=== PATIENT | female | born 1935 | race African-American/Black ===

== ENCOUNTER → 2018-12-23 | Day surgery (SDC) | payer MEDICARE, BC ==
[~2018-12-23] MED LIST: ASPI81TA50 PO; ATEN25TA PO; IV RINGERS,LACTATED 1000ML 1,000 ML IV ONE; LIDOCAINE 2% PF 5 ML VIAL. ONE; LOSA1TAB22 PO; PROPOFOL 40 ML IV ONE; TRIA1TAB5 PO
[2018-12-23 09:55] VITALS: BP 133/60
--- NOTE | 2018-12-24 14:06 | PATHOLOGY ---
[facility] Accession Number: [id number] . 01 Material submitted: . PART A: small bowel - SMALL BOWEL BIOPSY PART B: stomach - GASTRIC ANTRUM BIOPSY PART C: esophagus - DISTAL ESOPHAGUS BIOPSY. Modifiers: distal . 01 Clinical history: . Abdominal pain . 02 Diagnosis: A. Small bowel biopsies: - Focal mild nonspecific duodenitis. . B. Gastric biopsy, antrum: - Chronic gastritis, mild. . C. Esophageal biopsies, distal esophagus: - Segments of hyperplastic squamous esophageal mucosa and esophagogastric mucosa showing chronic inflammation, consistent with reflux esophagitis. (JPM:darren 12/24/2018) S/12/24/2018 . 02 Comment: Sections of the small bowel biopsy reveal segments of duodenal and small intestine mucosa showing congestion and a focal modest increase of chronic inflammatory cells with a few admixed neutrophils. Where best oriented, the mucosa villi show no sprue-like changes. . Sections of the gastric antral biopsy show congestion and mild chronic inflammation with a few admixed eosinophils. A properly controlled immunoperoxidase stain for Helicobacter is negative for Helicobacter organisms. . Sections of the distal esophageal biopsy reveal segments of tangentially oriented, hyperplastic squamous esophageal mucosa and esophagogastric mucosa showing mild to focal moderate chronic inflammation. The findings are consistent with reflux esophagitis. There is no evidence of Armstrong's change, dysplasia, or malignancy. (JPM:darren; 12/24/2018) . Special stain performed: Immunoperoxidase stain for Helicobacter on B1. . 02 Electronically signed: . Farooq Rajan MD, Pathologist NPI- [id number] . 01 Gross description: . A. Received in formalin labeled "[place], small bowel biopsy," are 4 segments of [place] soft tissue measuring 1.5 x 0.9 x 0.3 cm in aggregate dimensions and ranging from 0.3 to 0.5 cm in maximum dimension. The specimen is submitted entirely in cassette A1. . B. Received in formalin labeled "[place], gastric antrum," is a single segment of [place] soft tissue measuring 0.4 cm in maximum dimension. The specimen is entirely submitted in cassette B1. . C. Received in formalin labeled "[place], distal esophagus," are 4 segments of [place] soft tissue measuring 1.0 x 0.8 x 0.2 cm in aggregate dimensions and ranging from 0.3 to 0.5 cm in maximum dimension. The specimen is submitted entirely in cassette C1. (TSD; 12/23/2018) TOB/TOB . 02 Pathologist provided ICD-10: K29.80, K29.50, K21.0 . 02 CPT . 599577, 869444, [id number], [id number] Specimen Comment: A courtesy copy of this report has been sent to Specimen Comment: [phone], . Specimen Comment: Report sent to / DR MCCARTNEY Performed at: 01 [facility] [address], [place] [id number] MD Petros Ramírez MD Phone: [phone] Performed at: 02 [facility] [address] [place] [id number] MD Farooq Rajan MD Phone: [phone]
== END ==
LOC: SURG 08:28
PROVIDERS: ATTEND Internal Medicine Gastroenterology
DX: K29.50 Unspecified chronic gastritis without bleeding (principal); K29.80 Duodenitis without bleeding; K44.9 Diaphragmatic hernia without obstruction or gangrene; K21.0 Gastro-esophageal reflux disease with esophagitis; I10 Essential (primary) hypertension; F41.9 Anxiety disorder, unspecified; E78.5 Hyperlipidemia, unspecified; Z86.010 Personal history of colon polyps; E66.3 Overweight; Z79.899 Other long term (current) drug therapy; Z90.710 Acquired absence of both cervix and uterus; Z98.41 Cataract extraction status, right eye; Z98.890 Other specified postprocedural states
CPT/HCPCS: 43239; 88305; 88342; J2001; J2704